=== PATIENT | female | born 1990 | race Caucasian/White ===

== ENCOUNTER 2023-09-24 16:38 | Outpatient (REF) | payer OTHER, SELFPAY ==
[2023-09-24 17:52] LABS: Estimated Average Glucose 97 mg/dL
[2023-09-24 18:19] LABS: Cholesterol 213 mg/dL (<200); HDL Cholesterol 65 mg/dL (>40); LDL Cholesterol Calculated 133 mg/dL (<100); Triglycerides 78 mg/dL (<150)
[2023-09-24 18:34] LABS: TSH reflex Free T4 1.08 uIU/mL (0.32-4.0); Vitamin D 25-OH Total 23.6 ng/mL (>30)
[2023-09-24 18:42] LABS: Vitamin B12 606 pg/mL (200-900)
== END 2023-09-24 16:39 | disposition home or self-care (01) ==
LOC: HO.LAB 16:38
PROVIDERS: PCP Internal Medicine; Visit Provider Internal Medicine
DX: Z00.01 Encounter for general adult medical examination with abnormal findings (principal); Z13.6 Encounter for screening for cardiovascular disorders
CPT/HCPCS: 36415; 80061; 82306; 82607; 83036; 84443

== ENCOUNTER 2023-10-06 08:30 | Outpatient (AMB) | payer OTHER, SELFPAY ==
[2023-10-06 08:49] VITALS: BP 110/70; PULSE 92; TEMP 36.5; O2SAT 98; BMI 28.7
--- NOTE | 2023-10-06 08:49 | AM.OFFWIN_ITS ---
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 Rash on back-painful Intake Note: pt is here today for rash on rt side back painful started friday Patient Tobacco Use Status: Never used Tobacco Allergies tramadol [TRAMADOL] Adverse Reaction (Mild, Verified 10/06/23 08:52) NAUSEA & VOMITING Do you need a note to return to daycare/school/sports/work: Yes HPI HPI Comments History of Present Illness Details Rossy is a very pleasant presents walk-in today for sick visit Reports 3 days ago started with itching to the right flank, 2 days ago noted rash and burning pain to the area 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, concerned that she has shingles Denies fever, chest pain, shortness of breath, palpitations, nausea, vomiting, diarrhea, weakness, dizziness Over the weekend she took ibuprofen which did not help pain Patient is not , not immunocompromised [facility] Social History Patient Tobacco Use Status: Never used Tobacco Review of Systems Const All systems reviewed & are unremarkable except as noted in HPI and below Physical Exam Vital Signs: Last Vital Signs Temp 97.7 F 10/06/23 08:49 Pulse 92 10/06/23 08:49 BP 110/70 10/06/23 08:49 Pulse Ox 98 10/06/23 08:49 Oxygen Delivery Method Room Air 10/06/23 08:49 BMI result Body Mass Index 28.7 General: awake, alert, oriented. Answers questions appropriately. Fully engaged in examination. Skin: warm, dry. approx 4cm X 3cm area of grouped vesicles with underlying erythema noted to right flank. HEENT: Normocephalic. Hearing intact. Cardiac: External chest normal in appearance. Respiratory: No cough, audible wheezing or stridor. Abdomen: without gross distension. MS: No obvious swelling or deformities. Neurological: Oriented to person, place, time and situation. Thought process intact. No gait abnormalities appreciated. Psychiatric: Appropriate mood and affect. Good judgment and insight. Assessment & Plan Assessment & Plan (1) Shingles rash: Code(s): B02.9 - Zoster without complications Plan valacyclovir a 1000 mg p.o. t.i.d. x7 days Diclofenac sodium 50 mg p.o. b.i.d. as needed, patient advised on cautions for use May return to work, keep covered while at work if rash is weeping Avoid contact with women and immunocompromised persons All questions and concerns were answered, patient agrees with the plan Follow up with primary care doctor or return to walk-in clinic for a new, worsening or concerning symptoms. Medications: New valacyclovir 1,000 mg PO TID 7 days 21 tabs 0RF diclofenac sodium Do not take with other NSAIDs 50 mg PO BID PRN 30 tabs 0RF pain Coding Level of Care Code Est Pt Level 3 (90262) Diagnoses Shingles rash B02.9
== END 2023-10-06 10:18 | disposition home or self-care (01) ==
PROVIDERS: PCP Internal Medicine; Visit Provider Registered Nurse Emergency
DX: B02.9 Zoster without complications (principal)
CPT/HCPCS: 99213

== ENCOUNTER 2023-10-16 08:26 | Outpatient (AMB) | payer OTHER, SELFPAY ==
[2023-10-16 08:31] VITALS: BP 90/58; BMI 28.2
--- NOTE | 2023-10-16 08:31 | MHC.OFFVIS ---
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 Doing well with concerns: Pain with intimacy intermittently for some time now. Regular monthly menses, last cycle her. This heavy for 1 day and then tapered down with brown spotting and had increased menstrual cramps noted. Usually her periods are regular lasting 5 days. She denies vaginal itching and irritation. STI screening offered; she accepts. She denies any past abdominal injuries. She tries to eat healthy and stays active with walking at work. Denies family history of breast, ovarian or colon cancer. Last pap smear Unknown, history of a coloposcopy in her 's, follow ups were negative. 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 Sexual orientation: Straight/Heterosexual Gender identity: Female Female Reproductive History Menstrual Duration of menses: 3-5 days Date of last menstrual period: 10/01/23 control method: other (vasectomy) Total pregnancies: 3 Full term: 2 Number of Living Children: 2 Ab induced: 1 Review of Systems Const All systems reviewed & are unremarkable except as noted in HPI and below Reports as per HPI Eyes Reports no additional complaints ENT Reports no additional complaints Card Reports no additional complaints Resp Reports no additional complaints GI Reports as per HPI and Reports no additional complaints Reports as per HPI Musc Reports no additional complaints Skin/Breast Reports as per HPI Neuro Reports no additional complaints Psych Reports no additional complaints Endo Reports no additional complaints Murray/Lymph Reports no additional complaints Aller/Immun Reports no additional complaints Physical Exam Vital Signs: Last Vital Signs BP 90/58 L 10/16/23 08:31 BMI result Body Mass Index 28.2 Const General: cooperative, healthy appearing, no acute distress, well developed and alert Orientation/consciousness: patient oriented x3 HEENT Head: Yes normal to inspection Eyes General: appearance normal, both eyes and all related structures Neck Neck: Yes normal visual inspection Thyroid: Thyroid normal Chest Chest palpation & inspection: normal inspection of the chest and other (no puckering, dimpling, peau de orange, retraction, discharge, masses) Breast/axilla inspection: normal inspection of the breasts Breast/axilla palpation: normal palpation of the breasts Resp Effort & Inspection: normal respiratory effort GI Inspection: Yes normal to inspection Palpation (GI): Soft to palpation and Other GI palpation findings present (Slight tenderness superficially on the right lower abd transverse area) Rectal Exam - Female: deferred General: Yes bladder normal to palpation External Female Exam: normal external appearance and normal appearance of the urethra Speculum Exam - Vagina: normal appearance of the vagina, normal palpation and normal vaginal discharge Speculum Exam - Cervix: normal appearance of the cervix and normal palpation Bimanual exam- vagina & uterus: normal bimanual exam, normal palpation, uterine size normal, bladder normal to palpation, normal palpation and non-tender Bimanual Exam- Adnexa, other: no masses Skin General skin exam: no rashes or lesions noted Rashes: no rashes Neuro General: patient oriented x3 Cognition (Neuro): normal cognition Extrem General: Yes normal to inspection Psych Attitude: cooperative Thought process: Normal thought process present Assessment & Plan Assessment & Plan (1) Encounter for well woman exam with routine gynecological exam: Code(s): Z01.419 - Encounter for gynecological examination (general) (routine) without abnormal findings (2) Dyspareunia in female: Code(s): N94.10 - Unspecified dyspareunia Plan Discussed: Current recommendations for pap smears per ASCCP guidelines. Breast awareness and periodic breast exams. Maintain a healthy lifestyle including a well balanced diet and routine exercise. Follow-up pelvic ultrasound for test results and plan of care. Patient verbalizes understanding and agrees to the plan of care. She was given opportunity to ask questions and all questions were answered to the best of my ability. RTO in one year for annual commercial roofer examination. This note is constructed using voice recognition software. While every effort has been made to ensure accuracy, strike warfare/missile systems officer errors may have been included. Orders: Orders HIV Ab/Ag Today Z20.2 - Contact with and (suspected) exposure to infections with a predominantly sexual mode of transmission Bacterial Vaginosis Panel Today N92.6 - Irregular menstruation, unspecified CT NG by PCR Today N92.1 - Excessive and frequent menstruation with irregular cycle US pelvic and transvaginal Today N94.10 - Unspecified dyspareunia Hepatitis C Antibody Reflex Today Z20.2 - Contact with and (suspected) exposure to infections with a predominantly sexual mode of transmission Hepatitis B Core Antibody Today Z20.2 - Contact with and (suspected) exposure to infections with a predominantly sexual mode of transmission Syphilis Screen Today Z20.2 - Contact with and (suspected) exposure to infections with a predominantly sexual mode of transmission Pap Smear Today Z01.419 - Encounter for gynecological examination (general) (routine) without abnormal findings Coding Level of Care Code Est Pt Prev Care 18-39y(13111) Diagnoses Encounter for well woman exam with routine gynecological exam Z01.419 Dyspareunia in female N94.10
== END 2023-10-16 09:08 | disposition home or self-care (01) ==
PROVIDERS: Visit Provider Advanced Practice Midwife
DX: Z01.419 Encounter for gynecological examination (general) (routine) without abnormal findings (principal); N94.10 Unspecified dyspareunia
CPT/HCPCS: 99385; 99395

== ENCOUNTER 2023-10-16 08:26 | Outpatient (REF) | payer OTHER, SELFPAY ==
[2023-10-16 17:53] LABS: CT PCR NOT DETECTED (Not Detect.); NG PCR NOT DETECTED (Not Detect.)
[2023-10-17 14:00] LABS: BV Int Neg Control Negative (Negative); BV Int Pos Control Positive (Positive)
== END 2023-10-16 08:27 | disposition home or self-care (01) ==
LOC: HO.LAB 08:26
PROVIDERS: Visit Provider Advanced Practice Midwife
DX: Z01.419 Encounter for gynecological examination (general) (routine) without abnormal findings (principal); N92.1 Excessive and frequent menstruation with irregular cycle; N94.10 Unspecified dyspareunia; Z20.2 Contact with and (suspected) exposure to infections with a predominantly sexual mode of transmission
CPT/HCPCS: 0353U; 87480; 87510; 87660

== ENCOUNTER 2023-10-16 09:03 | Outpatient (REF) | payer OTHER, SELFPAY ==
[2023-10-23 04:34] LABS: HPV mRNA E6/E7 rflx Not Detected (Not Detected)
== END 2023-10-16 09:04 | disposition home or self-care (01) ==
LOC: HO.LNP 09:03
PROVIDERS: Visit Provider Advanced Practice Midwife
DX: Z01.419 Encounter for gynecological examination (general) (routine) without abnormal findings (principal); Z11.51 Encounter for screening for human papillomavirus (HPV)
CPT/HCPCS: 87624; 88142

== ENCOUNTER 2023-10-24 10:55 | Outpatient (REF) | payer OTHER, SELFPAY ==
--- NOTE | ~2023-10-24 | US_ITS ---
EXAMINATION: US PELVIS CLINICAL INFORMATION: Dyspareunia; the last menstrual period was on 10/01/2023. COMPARISON: None available. TECHNIQUE: Ultrasound of the pelvis is performed using both transabdominal and transvaginal transducers along with Doppler. Transvaginal imaging is performed due to inadequate visualization transabdominally. FINDINGS: Uterus: The uterus is anteverted and measures 8.0 x 4.0 x 5.5 cm. Nabothian cysts are seen within the cervix. The double wall endometrial thickness is 13 mm. The uterus is smooth in contour and has normal myometrial echogenicity. No visible fibroid. Adnexa: Both ovaries are visualized. There is normal color flow to the adnexa. There is no ovarian torsion. There is no pelvic ascites or fluid collection. Right ovary measures 2.6 x 1.9 x 1.6 cm, volume 4.1 mL. Left ovary measures 3.1 x 2.4 x 1.8 cm, volume 6.9 mL. A 1.6 cm corpus luteum cyst is seen. US/US pelvic and transvaginal IMPRESSION: 1. Nabothian cysts are seen within the cervix. 2. A 1.6 cm left ovarian corpus luteum cyst is seen, for which no imaging follow-up is recommended.
== END 2023-10-24 10:56 | disposition home or self-care (01) ==
LOC: HO.US 10:55
PROVIDERS: Visit Provider Advanced Practice Midwife
DX: N94.10 Unspecified dyspareunia (principal)
CPT/HCPCS: 76830; 76856

== ENCOUNTER 2023-11-26 07:38 | Outpatient (AMB) | payer OTHER, SELFPAY ==
--- NOTE | 2023-11-26 07:39 | A.OFFVIS_ITS ---
Vital Signs 11/26/23 07:42 Height 5 ft 2 in Weight 152 lb 1.903 oz BMI 27.8 BP 110/66 Intake Visit Reasons: US follow up Drug Worker Required: No Information Interpreted: non-clinical & clinical Funeral Service Practitioner/Embalmer: Funeral Service Practitioner/Embalmer Present Accompanied by: Self / Same As Patient Allergies tramadol [TRAMADOL] Adverse Reaction (Mild, Verified 11/26/23 07:43) NAUSEA & VOMITING Is last menstrual period known: Yes Last menstrual period: 11/23/23 HPI Comments Details: Patient is here today for ultrasound follow up, she reports that she is somewhat better but not resolved. History of dyspareunia at times. Previous cervical cultures were all negative. 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 Sexual orientation: Straight/Heterosexual Gender identity: Female Female Reproductive History Menstrual Date of last menstrual period: 11/23/23 Review of Systems Const All systems reviewed & are unremarkable except as noted in HPI and below Endo Reports no additional complaints Physical Exam Vital Signs: Last Vital Signs BP 110/66 11/26/23 07:42 BMI result Body Mass Index 27.8 Const General: cooperative, healthy appearing and no acute distress Psych Appearance: well kempt Attitude: cooperative Thought process: Normal thought process present Results Reviewed Results Reviewed: [address] [address] Ultrasound Report Signed Patient: Rossy Mcgovern MR#: [id number] : 1990 Acct:[id number] Age/Sex: 33 / F ADM Date: 10/24/23 Loc: HO.US Attending Dr: Sandy Barajas CNM Ordering Physician: Sandy Barajas CNM Date of Service: 10/24/23 Procedure(s): US pelvic and transvaginal Accession Number(s): [id number] cc: Sandy Barajas CNM~ EXAMINATION: US PELVIS CLINICAL INFORMATION: Dyspareunia; the last menstrual period was on 10/01/2023. COMPARISON: None available. TECHNIQUE: Ultrasound of the pelvis is performed using both transabdominal and transvaginal transducers along with Doppler. Transvaginal imaging is performed due to inadequate visualization transabdominally. FINDINGS: Uterus: The uterus is anteverted and measures 8.0 x 4.0 x 5.5 cm. Nabothian cysts are seen within the cervix. The double wall endometrial thickness is 13 mm. The uterus is smooth in contour and has normal myometrial echogenicity. No visible fibroid. Adnexa: Both ovaries are visualized. There is normal color flow to the adnexa. There is no ovarian torsion. There is no pelvic ascites or fluid collection. Right ovary measures 2.6 x 1.9 x 1.6 cm, volume 4.1 mL. Left ovary measures 3.1 x 2.4 x 1.8 cm, volume 6.9 mL. A 1.6 cm corpus luteum cyst is seen. US/US pelvic and transvaginal IMPRESSION: 1. Nabothian cysts are seen within the cervix. 2. A 1.6 cm left ovarian corpus luteum cyst is seen, for which no imaging follow-up is recommended. Dictated By: Dejan eNwell MD Signed By: <Electronically signed by Dejan Newell MD in OV> 10/29/23 1038 DD/ 1125 TD/TT: Talent Acquisition Consultant: TONY Assessment & Plan Assessment & Plan (1) Encounter to discuss test results: Code(s): Z71.2 - Person consulting for explanation of examination or test findings (2) Dyspareunia in female: Code(s): N94.10 - Unspecified dyspareunia Plan Discussed: Ultrasound findings including corpus luteum cyst, nabothian cyst, normal findings. Self-help measures for dyspareunia due to positional concerns, include changing position, shallow thrusting, pelvic anatomy reviewed, changes with aging and musculature, use of silicone penial rings-Miah STOVALL website information provided. Return to the office as needed, annual exam scheduled October 2024. All of her questions and concerns were addressed to the best of my ability and shared decision making. She is agreeable to the plan of care. This note is constructed using voice recognition software. While every effort has been made to ensure accuracy, hydraulic controls technician errors may have been included. Coding Level of Care Code Est Pt Level 3 (64203) Diagnoses Encounter to discuss test results Z71.2 Dyspareunia in female N94.10
[2023-11-26 07:42] VITALS: BP 110/66; BMI 27.8
== END 2023-11-26 09:18 | disposition home or self-care (01) ==
PROVIDERS: Visit Provider Advanced Practice Midwife
DX: Z71.2 Person consulting for explanation of examination or test findings (principal); N94.10 Unspecified dyspareunia
CPT/HCPCS: 99213

== ENCOUNTER → 2023-11-26 07:38 | Outpatient (BNVA) | payer OTHER, SELFPAY | PROVIDERS: Visit Provider Advanced Practice Midwife ==

== ENCOUNTER 2024-02-10 12:35 | Outpatient (AMB) | payer OTHER, SELFPAY ==
--- NOTE | 2024-02-10 12:36 | A.OFFVIS_ITS ---
Vital Signs 02/10/24 12:44 Height 5 ft 2 in Weight 152 lb 8.958 oz BMI 27.9 BP 116/62 Blood Pressure Location Rt brachial Position Sitting Pulse 88 Pulse Source Pulse Oximeter Pulse Oximetry (%) 97 Oxygen Delivery Method Room Air Intake Visit Reasons: Colonoscopy Screening Intake Note: Rossy presents in office today for a scheduled colo s/p scrn CC; Pt reports that they have been experiencing some melena as well as bloating, constipation, and other fecal abnormalities. Pt reports that these sx have been a chronic issue over the course of the last year. However, the melena started within the last 2 weeks. Pt reports that the melena presents as small amounts of medium to dark red blood. Operating Systems Specialist Required: No Accompanied by: Self / Same As Patient Allergies tramadol [TRAMADOL] Adverse Reaction (Mild, Verified 02/10/24 12:36) NAUSEA & VOMITING HPI HPI Colonoscopy Screening: Details: 34-year-old female here for an initial evaluation of IBS-M. She is referred by [facility]. PMX Overweight Migraines * SURGICAL HISTORY * ALLERGIES Tramadol * [employer] LABS: no relevant labs in our system since 2019 TODAY'S VISIT Onset about 1.5 years ago. Before this she was very regular qod. Now she has stool consistency ranging from hard nuggest to pencil soft and mucus. She occasionally sees blood. She has bloating and some lower abd discomfort. She has been avoiding dairy and certain FODMAP foods. She is only moving her bowels twice a week on average. She has tried increasing her fiber and water w/o help. No med changes, illness or diet changes preceding this. She gas been feeling fatigued and ? some hair thinning. She gets MORROW's when she strains at the stool and is working with neurology about this. Start senna 1-2 tabs and titrate until waiting for labs. ROV 4 weeks. 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 Sexual orientation: Straight/Heterosexual Gender identity: Female Review of Systems Const Reports fatigue, Denies fever(s), Reports headache(s), Denies night sweats, Denies poor appetite, Reports weight gain and Denies weight loss ENT Reports Normal hearing present, Denies dental pain, Denies dysphagia, Reports headache(s), Denies hearing loss, Denies mouth pain, Denies odynophagia, Denies throat swelling, Denies tongue swelling and Reports other (Dentition adequate) Card Reports no additional complaints Resp Reports no additional complaints GI Details: Denies abdominal pain, Denies melena, Reports bloating, Denies hematochezia, Reports constipation, Denies GI cramping, Denies dysphagia, Denies excessive flatus, Denies early satiety, Reports heartburn, Denies diarrhea, Denies nausea, Denies odynophagia, Denies vomiting and Denies hematemesis Skin/Breast Denies pruritus, Denies lesions, Denies rash and Denies jaundice Neuro Reports Normal hearing present, Denies Abnormal speech present and Reports headache(s) Endo Details: Hair thinning Reports fatigue Aller/Immun Denies throat swelling and Denies tongue swelling Physical Exam Vital Signs: Last Vital Signs Pulse 88 02/10/24 12:44 BP 116/62 02/10/24 12:44 Pulse Ox 97 02/10/24 12:44 Oxygen Delivery Method Room Air 02/10/24 12:44 BMI result Body Mass Index 27.9 Const General: cooperative, no acute distress, well developed and well groomed Nutritional Appearance: average body habitus and well nourished Orientation/consciousness: oriented to person, oriented to place and oriented to time Limitations: No language barrier HEENT Head: Yes normocephalic and Yes atraumatic Eyes General: appearance normal, both eyes and all related structures Pupils: Equal, round and reactive pupils present Neck Neck: Yes normal visual inspection and Yes no lymphadenopathy Thyroid: Thyroid normal Resp Effort & Inspection: normal respiratory effort and able to speak in complete sentences Auscultation: clear to auscultation bilaterally Cardio Rate: regular rate Rhythm: regular rhythm Heart sounds: Normal, physiologic split S2 sound present Peripheral pulses: radial pulses present and posterior tibial pulses present GI Inspection: No distended and No Abdominal panniculus present Palpation (GI): Soft to palpation, nontender, no guarding, not rigid and No hepatosplenomegaly present Percussion: Yes normal to percussion Auscultation: normal bowel sounds Rectal Exam - Female: deferred Skin General skin exam: no rashes or lesions noted, turgor normal, skin not dry, no jaundice, No spider nevi and no striae Rashes: no rashes Nails: normal Neuro General: oriented to person, oriented to place and oriented to time Cranial nerves: Yes Equal, round and reactive pupils present and Yes Normal hearing present Speech: No Abnormal speech present Extrem General: Yes normal to inspection, No clubbing, No cyanosis and No edema Psych Appearance: grossly normal and well kempt Mental Status: mental status grossly normal Speech and movement: Normal speech and movement present Affect: normal affect Attitude: cooperative Thought process: Normal thought process present and not confabulating Thought content: Normal thought content present Insight: Good insight present (Psych) Judgement: Good judgement present (Psych) Assessment & Plan Assessment & Plan (1) Chronic idiopathic constipation: Code(s): K59.04 - Chronic idiopathic constipation Category: Medical (2) Chronic idiopathic constipation: Code(s): K59.04 - Chronic idiopathic constipation Category: Medical Plan Onset about 1.5 years ago. Before this she was very regular qod. Now she has stool consistency ranging from hard nuggest to pencil soft and mucus. She occasionally sees blood. She has bloating and some lower abd discomfort. She has been avoiding dairy and certain FODMAP foods. She is only moving her bowels twice a week on average. She has tried increasing her fiber and water w/o help. No med changes, illness or diet changes preceding this. She gas been feeling fatigued and ? some hair thinning. She gets MORROW's when she strains at the stool and is working with neurology about this. Start senna 1-2 tabs and titrate until waiting for labs. ROV 4 weeks. Orders: Orders TSH reflex Free T4 Today K59.04 - Chronic idiopathic constipation XR abdomen w decubitus Today K59.04 - Chronic idiopathic constipation Comprehensive Met. Panel Today K59.04 - Chronic idiopathic constipation Complete Blood Count Auto Diff Today K59.04 - Chronic idiopathic constipation Medications: New sennosides (Senna Laxative) 17.2 mg (2 x 8.6 mg) PO BEDTIME 60 tabs 6RF K59.04 - Chronic idiopathic constipation Discontinued fluconazole administer on day 1 of therapy Discontinued Reason: Patient no longer taking 150 mg PO DAILY 1 tab 0RF Coding Level of Care Code New Pt Level 3 (95471) Diagnoses Chronic idiopathic constipation K59.04
[2024-02-10 12:44] VITALS: BP 116/62; PULSE 88; O2SAT 97; BMI 27.9
== END 2024-02-10 13:14 | disposition home or self-care (01) ==
PROVIDERS: Visit Provider Nurse Practitioner
DX: K59.04 Chronic idiopathic constipation (principal)
CPT/HCPCS: 99203

== ENCOUNTER 2024-02-10 12:35 | Outpatient (REF) | payer OTHER, SELFPAY ==
[2024-02-10 15:17] LABS: MANUAL DIFF FLAG NO
[2024-02-10 15:49] LABS: Basophils Absolute Auto 0.1 X10*3/uL (0.0-0.2); Basophils Percent Auto 0.6 % (0-2); Eosinophils Absolute Auto 0.2 X10*3/uL (0.0-0.4); Eosinophils Percent Auto 2.5 % (0-4); Hematocrit 39.6 % (37.0-47.0); Hemoglobin 13.5 g/dl (12.0-16.0); Imm Gran Abs Auto 0.02 X10*3/uL (0.00-0.03); Imm Gran Pct Auto 0.2 % (0.0-0.4); Lymphocytes Absolute Auto 3.9 X10*3/uL (1.2-4.9); Lymphocytes Percent Auto 47.5 % (20-40); Mean Corpuscular HGB Conc 34.1 g/dl (31.0-35.0); Mean Corpuscular Hemoglobin 30.4 pg (27.0-33.0); Mean Corpuscular Volume 89.2 fL (80.0-98.0); Mean Platelet Volume 9.4 fL (9.4-12.3); Monocytes Absolute Auto 0.6 X10*3/uL (0.1-1.2); Neutrophils Absolute Auto 3.4 x10*3/uL (2.0-8.3); Neutrophils Percent Auto 42.2 % (45-73); Platelet Count 375 X10*3/uL (160-400); Red Blood Count 4.44 X10*6/uL (4.20-5.50); Red Cell Distribution Width 13.2 % (11.0-16.0); White Blood Count 8.1 X10*3/uL (4.8-10.8)
[2024-02-10 16:25] LABS: Alanine Aminotransferase 27 U/L (0-31); Albumin Level 4.1 g/dL (3.5-5.0); Alkaline Phosphatase 93 U/L (39-117); Anion Gap 9 (12-20); Aspartate Amino Transferase 23 U/L (5-31); Bilirubin Total 0.2 mg/dL (0.0-1.0); Blood Urea Nitrogen 16 mg/dL (9-16); Carbon Dioxide 28 mmol/L (22-29); Chloride 106 mmol/L (96-108); Estimated Glomerular Filt Rate > 60; Glucose Random 93 mg/dL (60-115); Potassium 4.4 mmol/L (3.3-5.1); Sodium 139 mmol/L (135-145); Total Protein 7.2 g/dL (6.5-8.0)
[2024-02-10 16:40] LABS: TSH reflex Free T4 0.91 uIU/mL (0.32-4.0)
[2024-02-11 04:29] LABS: Syphilis Screen Nonreactive (Nonreactive)
[2024-02-11 08:08] LABS: HBc Num1 0.08 S/CO (0.00-0.79); HIV AB/AG Nonreactive (Nonreactive); HIV Num 1 0.04 S/CO (0.00-0.99); Hepatitis B Core Antibody Nonreactive (Nonreactive); ~HepC Num1 0.08 S/CO (0.00-0.79); ~Hepatitis C Antibody Nonreactive (Nonreactive)
== END 2024-02-10 12:36 | disposition home or self-care (01) ==
LOC: HO.LAB 12:35
PROVIDERS: Absent Provider Advanced Practice Midwife; PCP Internal Medicine; Visit Provider Nurse Practitioner
DX: Z11.4 Encounter for screening for human immunodeficiency virus [HIV] (principal); K59.04 Chronic idiopathic constipation; Z20.2 Contact with and (suspected) exposure to infections with a predominantly sexual mode of transmission
CPT/HCPCS: 36415; 80053; 84443; 85025; 86704; 86780; 86803; 87389

== ENCOUNTER 2024-05-12 15:32 | Outpatient (REF) | payer OTHER, SELFPAY ==
--- NOTE | ~2024-05-12 | XR_ITS ---
EXAMINATION: XR HIP, LEFT CLINICAL INFORMATION: LEFT HIP PAIN COMPARISON: None available. TECHNIQUE: Two views of the left hip. FINDINGS: Submitted for interpretation on June 18, 2024. Foreshortening of the femoral neck. No acute cortical disruption or malalignment. No lytic or blastic lesions. XR/XR hip LT min 2V IMPRESSION: No gross acute fracture or dislocation. Electronically signed by: Igor Reed MD 06/18/2024 12:39 PM [facility]
== END 2024-05-12 15:33 | disposition home or self-care (01) ==
LOC: HO.XRAY 15:32
PROVIDERS: PCP Internal Medicine; Visit Provider Internal Medicine
DX: M25.552 Pain in left hip (principal)
CPT/HCPCS: 73502

== ENCOUNTER → 2024-05-12 15:54 | Outpatient (BNV) | payer OTHER, SELFPAY | PROVIDERS: PCP Internal Medicine; Visit Provider Radiology Diagnostic Radiology | DX: M25.552 Pain in left hip (principal) | CPT/HCPCS: 73502 ==

== ENCOUNTER 2024-10-20 07:46 | Outpatient (AMB) | payer OTHER, SELFPAY ==
--- NOTE | 2024-10-20 07:46 | MHC.OFFVIS ---
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 Regular monthly menses. Currently is sexually active. History of vasectomy. She denies vaginal itching and irritation. STI screening offered; she declines. She tries to eat healthy and stays active with exercise. Denies family history of breast, ovarian or colon cancer. Last pap smear 2023, negative. 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 Sexual orientation: Straight/Heterosexual Gender identity: Female Female Reproductive History Menstrual control method: other (vasectomy) Total pregnancies: 3 Full term: 2 Number of Living Children: 2 Date of last pap smear: 10/20/23 Review of Systems Const All systems reviewed & are unremarkable except as noted in HPI and below Reports as per HPI Eyes Reports no additional complaints ENT Reports no additional complaints Card Reports no additional complaints Resp Reports no additional complaints GI Reports as per HPI and Reports no additional complaints Reports as per HPI Musc Reports no additional complaints Skin/Breast Reports as per HPI Neuro Reports no additional complaints Psych Reports no additional complaints Endo Reports no additional complaints Murray/Lymph Reports no additional complaints Aller/Immun Reports no additional complaints Physical Exam Vital Signs: Last Vital Signs BP 102/66 10/20/24 07:48 BMI result Body Mass Index 26.7 Const General: cooperative, healthy appearing, no acute distress, well developed and alert Orientation/consciousness: patient oriented x3 HEENT Head: Yes normal to inspection Eyes General: appearance normal, both eyes and all related structures Neck Neck: Yes normal visual inspection Thyroid: Thyroid normal Chest Chest palpation & inspection: normal inspection of the chest and other (no puckering, dimpling, peau de orange, retraction, discharge, masses) Breast/axilla inspection: normal inspection of the breasts Breast/axilla palpation: normal palpation of the breasts Resp Effort & Inspection: normal respiratory effort GI Inspection: Yes normal to inspection Palpation (GI): Soft to palpation Rectal Exam - Female: deferred General: Yes bladder normal to palpation External Female Exam: normal external appearance and normal appearance of the urethra Speculum Exam - Vagina: normal appearance of the vagina, normal palpation and normal vaginal discharge Speculum Exam - Cervix: normal appearance of the cervix and normal palpation Bimanual exam- vagina & uterus: normal bimanual exam, normal palpation, uterine size normal, bladder normal to palpation, normal palpation and non-tender Bimanual Exam- Adnexa, other: no masses Skin General skin exam: no rashes or lesions noted Rashes: no rashes Neuro General: patient oriented x3 Cognition (Neuro): normal cognition Extrem General: Yes normal to inspection Psych Attitude: cooperative Thought process: Normal thought process present Assessment & Plan Assessment & Plan (1) Encounter for well woman exam with routine gynecological exam: Code(s): Z01.419 - Encounter for gynecological examination (general) (routine) without abnormal findings Category: Medical Plan Discussed: Current recommendations for pap smears per ASCCP guidelines. Breast awareness and periodic breast exams. Maintain a healthy lifestyle including a well balanced diet and routine exercise. Patient verbalizes understanding and agrees to the plan of care. She was given opportunity to ask questions and all questions were answered to the best of my ability. 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 This note is constructed using voice recognition software. While every effort has been made to ensure accuracy, store sales consultant errors may have been included. Coding Level of Care Code Est Pt Prev Care 18-39y(93806) Diagnoses Encounter for well woman exam with routine gynecological exam Z01.419
[2024-10-20 07:48] VITALS: BP 102/66; BMI 26.7
== END 2024-10-20 08:35 | disposition home or self-care (01) ==
LOC: HO.HWS 07:46
PROVIDERS: PCP Internal Medicine; Visit Provider Advanced Practice Midwife
DX: Z01.419 Encounter for gynecological examination (general) (routine) without abnormal findings (principal)
CPT/HCPCS: 99395; 99459

== ENCOUNTER → 2024-10-20 07:46 | Outpatient (BNVA) | payer OTHER, SELFPAY | PROVIDERS: PCP Internal Medicine; Visit Provider Advanced Practice Midwife ==

== ENCOUNTER 2024-12-27 10:32 | Outpatient (AMB) | payer OTHER, SELFPAY ==
[2024-12-27 10:41] VITALS: BP 106/64; PULSE 80; TEMP 36.8; O2SAT 98; BMI 26.2
--- NOTE | 2024-12-27 10:41 | AM.OFFWIN_ITS ---
Intake Vital Signs 3 12/27/24 10:41 Height 5 ft 2 in Weight 143 lb 6 oz BMI 26.2 BP 106/64 Blood Pressure Location Rt brachial Position Sitting Pulse 80 Pulse Source Pulse Oximeter Temp 98.2 F Temp Source Oral Pulse Oximetry (%) 98 Oxygen Delivery Method Room Air Intake Visit Reasons: EP swelling on lt eye/ Intake Note: Patient presents for lt eye swelling times 2 days Patient Tobacco Use Status: Never used Tobacco Allergies tramadol [TRAMADOL] Adverse Reaction (Mild, Verified 12/27/24 10:45) NAUSEA & VOMITING Do you need a note to return to daycare/school/sports/work: Yes [facility] Medical History (Updated 12/27/24 @ 11:27 by Angelia Francisco NP) Allergic rhinitis Migraine headache without aura Social History Household Members: Spouse and Children Household Members Other:: 2 daughters Alcohol intake: current Alcohol intake frequency: a few times a month Patient Tobacco Use Status: Never used Tobacco 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 Sexual orientation: Straight/Heterosexual Gender identity: Female Review of Systems Const All systems reviewed & are unremarkable except as noted in HPI and below Physical Exam Vital Signs: Last Vital Signs Temp 98.2 F 12/27/24 10:41 Pulse 80 12/27/24 10:41 BP 106/64 12/27/24 10:41 Pulse Ox 98 12/27/24 10:41 Oxygen Delivery Method Room Air 12/27/24 10:41 BMI result Body Mass Index 26.2 Const General: no acute distress Nutritional Appearance: well nourished Orientation/consciousness: patient oriented x3 HEENT Head: Yes normocephalic Ears: external ears normal and TM abnormal with fluid behind the TM bilateral and retracted General nose exam: Abnormal mucous membranes and turbinates present boggy and erythematous Face and sinus: Yes sinuses nontender Mouth: moist mucous membranes Throat: Yes postnasal drainage Eyes Pupils: Equal, round and reactive pupils present EOM: EOMs intact bilaterally Eyes/upper lids images: 2 1. Some mild Papilledema left lower eyelid Neuro General: patient oriented x3, gait normal and moves all extremities Cranial nerves: Yes Equal, round and reactive pupils present Psych Speech and movement: Normal speech and movement present Assessment & Plan Assessment & Plan (1) Allergic rhinitis: Code(s): J30.9 - Allergic rhinitis, unspecified Qualifiers: Allergic rhinitis seasonality: seasonal Allergic rhinitis trigger: u nspecified Qualified Code(s): J30.2 - Other seasonal allergic rhinitis Plan: DDx': Allergic rhinitis vs Papilledema vs Blocked Tearducts vs sinus infection. Will Treat with Flonase and Zyrtec BID for 7 days. RTC if not improved. Advised to f/u PCP also Medications: New 2 fluticasone furoate 27.5 mcg/actuation (Flonase Sensimist) into each nostril 1 spray intranasal DAILY 27.3 mL 0RF J30.2 - Other seasonal allergic rhinitis cetirizine (Zyrtec) 10 mg PO DAILY 30 tabs 0RF J30.2 - Other seasonal allergic rhinitis Coding Level of Care Code New Pt Level 4 (20041) Diagnoses Seasonal allergic rhinitis, unspecified trigger J30.2 Allergic rhinitis seasonality: seasonal Allergic rhinitis trigger: unspecified Time Spent (min) 20
== END 2024-12-27 11:25 | disposition home or self-care (01) ==
PROVIDERS: PCP Internal Medicine; Visit Provider Nurse Practitioner Family
DX: J30.2 Other seasonal allergic rhinitis (principal)

== ENCOUNTER → 2024-12-27 10:32 | Outpatient (BNVA) | payer OTHER, SELFPAY | PROVIDERS: PCP Internal Medicine | DX: Z13.89 Encounter for screening for other disorder (principal) ==